=== PATIENT | male | born 1975 | race Two or more races ===

== ENCOUNTER 2020-08-15 08:50 | Emergency (ER) | payer SELFPAY ==
[~2020-08-15] VITALS: Ht 185.4 cm; Wt 91.0 kg
--- NOTE | 2020-08-15 08:58 | PHYS DOC ---
General Adult EDM: Chief Complaint: BACK PAIN OR INJURY HPI: HPI: 45M with no reported significant past medical history, p/w back pain. The patient reports a 1 week history of atraumatic left t thoracolumbar back pain. He points to his left paraspinal musculature is area of discomfort. He states the pain is worsened with AROM, as well as direct palpation. No abdominal pain, nausea, vomiting, dysuria, hematuria. No fall or trauma. No focal weakness or paresthesia. No bowel or bladder dysfunction. 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 Review of Systems: Review of Systems: Gen: No fever. CV: No CP. Resp. No SOB, cough. GI: No abd pain, N/V. : No dysuria, hematuria. Neuro: No ROSE, dizziness, weakness. MSK: No arthralgia. Reports back pain. Skin: No acute rash. Remainder of systems reviewed and negative unless otherwise specified. Heart Score: Risk Factors: Risk Factors: DM, Current or recent (<one month) smoker, HTN, HLP, family history of CAD, obesity. Risk Scores: Score 0 - 3: 2.5% MACE over next 6 weeks - Discharge Home Score 4 - 6: 20.3% MACE over next 6 weeks - Admit for Clinical Observation Score 7 - 10: 72.7% MACE over next 6 weeks - Early Invasive Strategies Physical Exam: PE: Gen: NAD. Well nourished. Head: NC/AT. Eyes: No scleral icterus. No conjunctival injection. ENT: MMM. Neck: Supple. NT. CV: RRR. Peripheral pulses intact. Resp: CTAB. Abd: Soft. NT. ND. MSK: No peripheral cyanosis. No edema. Back: No midline spinal tenderness or step-offs. Left thoracolumbar paraspinal hypertonicity without overlying skin changes. Neuro: A&Ox3. Strength & sensation grossly intact throughout. Skin. Warm. Dry. Psych: Appropriate mood & affect. EKG: EKG: [] Radiology/Procedures: Radiology/Procedures: LUMBAR SPINE 2-3V DATE: 08/15/2020 9:17 AM INDICATION: Back Thoracolumbar back pain / Spl. Instructions: / History: COMPARISON: None. FINDINGS: Five non-rib bearing lumbar-type vertebral bodies are present. Bones/Alignment: No evidence of acute compression fracture. There is no listhesis. Joints: Mild multilevel degenerative disc disease. Miscellaneous: None. IMPRESSION: No evidence of acute compression fracture. Mild degenerative changes Electronically signed by: Issa Quan MD (08/15/2020 9:52 AM) [id number] THORACIC SPINE 3V DATE: 08/15/2020 9:17 AM INDICATION: Thoracolumbar back pain / Spl. Instructions: / History: COMPARISON: None. FINDINGS: The upper thoracic vertebrae are obscured on the lateral view by overlying soft tissue and osseous structures. Bones/Alignment: No evidence of acute compression fracture. No listhesis. Joints: The disc space heights are normal. Miscellaneous: None. IMPRESSION: No evidence of acute compression fracture. Electronically signed by: Issa Quan MD (08/15/2020 9:51 AM) [id number] Course & Med Decision Making: Course & Med Decision Making Pertinent Labs and Imaging studies reviewed. (See chart for details) In summary, 45-year-old male who presents with atraumatic thoracolumbar back pain. No clinical signs or symptoms concerning for acute compressive myelopathy or acute vasculopathy. Paraspinal hypertonicity on examination. No focal neurological deficits. Plain films are negative for acute osseous abnormality. We discharged home with prescriptions for lidocaine patch, Flexeril. Return precautions given. Marlon Disclaimer: Marlon Disclaimer: This electronic medical record was generated, in whole or in part, using a voice recognition dictation system. Departure Departure Impression: Primary Impression: Thoracolumbar back pain Disposition: 01 DC HOME SELF CARE/HOMELESS Condition: STABLE Referrals: NO PCP (PCP) Patient Instructions: Back Pain, Adult, [facility] Scripts Cyclobenzaprine Hcl (CYCLOBENZAPRINE HCL) 10 Mg Tablet 1 TAB PO TID, #21 TAB Prov: LETRIPP H DO 08/15/20 Lidocaine (Lidocaine PATCH ) 1 Each Adh..patch 1 EACH TP DAILY for FOR LOCAL PAIN, #10 PATCH REMOVE AFTER 12 HOURS Prov: LE,TRIPP H DO 08/15/20 LE,TRIPP H DO Aug 15, 2020 08:58
[2020-08-15] MEDS ORDERED: LIDOCAINE (700MG/PATCH) PATCH. TD ONE (09:30)
[2020-08-15] MEDS ORDERED: CYCLOBENZAPRINE 10 MG TABLET. PO ONE (09:30)
--- NOTE | 2020-08-15 09:55 | RAD ---
THORACIC SPINE 3V DATE: 08/15/2020 9:17 AM INDICATION: Thoracolumbar back pain / Spl. Instructions: / History: COMPARISON: None. FINDINGS: The upper thoracic vertebrae are obscured on the lateral view by overlying soft tissue and osseous structures. Bones/Alignment: No evidence of acute compression fracture. No listhesis. Joints: The disc space heights are normal. Miscellaneous: None. IMPRESSION: No evidence of acute compression fracture. Electronically signed by: Issa Quan MD (08/15/2020 9:51 AM) [id number]
--- NOTE | 2020-08-15 09:55 | RAD ---
LUMBAR SPINE 2-3V DATE: 08/15/2020 9:17 AM INDICATION: Back Thoracolumbar back pain / Spl. Instructions: / History: COMPARISON: None. FINDINGS: Five non-rib bearing lumbar-type vertebral bodies are present. Bones/Alignment: No evidence of acute compression fracture. There is no listhesis. Joints: Mild multilevel degenerative disc disease. Miscellaneous: None. IMPRESSION: No evidence of acute compression fracture. Mild degenerative changes Electronically signed by: Issa Quan MD (08/15/2020 9:52 AM) [id number]
[2020-08-15] MEDS ORDERED: DEXAMETHASONE 4 MG TABLET PO SCH (10:00)
[2020-08-15] MEDS ORDERED: CYCL10TA2 PO (10:40)
[2020-08-15] MEDS ORDERED: LIDO700A21 TP (10:40)
[2020-08-15 10:50] VITALS: BP 131/79
== END 2020-08-15 10:59 | disposition home or self-care (01) ==
LOC: ER 08:50
DX: M54.5 Low back pain (principal); R20.2 Paresthesia of skin
CPT/HCPCS: 72072; 72100; 99284